=== PATIENT | male | born 1960 | race Caucasian/White ===

== ENCOUNTER 2025-04-13 17:30 | Emergency (ER) | payer MEDICARE ==
[~2025-04-13] VITALS: Ht 177.8 cm; Wt 98.0 kg
[2025-04-13 17:35] VITALS: TEMP 96.8
--- NOTE | 2025-04-13 17:42 | ERN ---
ED Note History of Present Illness Stated Complaint: ABNORMAL EKG Chief Complaint: Rapid Heart Rate Time Seen by MD: 17:34 Time Seen by Midlevel: 17:34 Dictation: Mr. Mathew is a 65 year old gentleman with history of hypertension, aortic valve replacement, chronic anticoagulation on Eliquis, GERD, hyperlipidemia, and asthma who presented to the emergency department this evening for evaluation of rapid heart rate. Patient states that at around noon he became anxious with some shortness of breath. He checked his heart rate and ranged between 112-120 which is abnormal for him. He states that he generally walks 2-2-1/2 miles daily but did not do so today. He had routine appointment at his PCP's office this afternoon. They performed a 12 lead EKG which revealed a sinus tachycardia with rate 115. They recommended he come to the closest emergency department for a IV beta-dot. His marketing planning manager is in [place]. He states he took dose Ativan 1mg at 1700. He denies fever, chills, cough, chest pain,edema, abdominal pain, nausea, vomiting, hematemesis, constipation, diarrhea, melena, hematochezia, dysuria, headache, dizziness, or focal weakness/paresthesia Allergies: Coded Allergies: metoprolol (Unverified Allergy, Unknown, 04/13/25) prochlorperazine (Unverified Allergy, Unknown, 04/13/25) Emergency Care DIGITAL ANALYST: None Past Medical History Past Medical History: Anxiety, Asthma, Cancer (skin), GERD, Heart Disease, H ypertension, Other (chronic anticoagulation on Eliquis) Surgical History: Other (aortic valve replacement x 2 , removal cancer) PSYCH History: anxiety Social History: Negative, Lives with family RN Note Reviewed/Agreed w/PFSH: Yes Review of System Dictation REVIEW OF SYSTEMS: CONSTITUTIONAL: Patient denies fevers, chills, sweats and weight changes. EYES: Patient denies any visual symptoms. EARS, NOSE, AND THROAT: No difficulties with hearing. No symptoms of rhinitis or sore throat. CARDIOVASCULAR: Patient denies chest pains, orthopnea and paroxysmal nocturnal dyspnea. Reports rapid heart rate. RESPIRATORY: No dyspnea on exertion, no wheezing or cough. GI: No nausea, vomiting, diarrhea, constipation, abdominal pain, hematochezia or melena. : No urinary hesitancy or dribbling. No nocturia or urinary frequency. No abnormal urethral discharge. MUSCULOSKELETAL: No myalgias or arthralgias. NEUROLOGIC: No chronic headaches, no seizures. Patient denies numbness, tingling or weakness. PSYCHIATRIC: Patient denies problems with mood disturbance. Reports increased stress and anxiety. Takes PRN Ativan 1-2 times daily. ENDOCRINE: No excessive urination or excessive thirst. DERMATOLOGIC: Patient denies any rashes or skin changes. Initial Vital Sign VS Vital Signs Date Time Temp Pulse Resp B/P (MAP) Pulse Ox O2 Delivery O2 Flow Rate FiO2 04/13/25 17:35 96.8 126 20 168/118 98 Room Air 0 Physical Exam Dictation Vital signs: Reviewed. Afebrile Constitutional: No acute distress. Non-toxic appearing. Calm/pleasant Head/Face: Normocephalic, atraumatic. Eyes: Periorbital areas with no swelling, redness, or edema. Lids and lashes are normal. Conjunctival injection is absent. Sclera anicteric. Pupils equal, round, reactive to light. ENT: Pinnas intact and no signs of trauma or erythema. Ear canals clear and no discharge. TMs no erythema. No nasal discharge or bleeding noted. Oropharynx with no exudate, redness, swelling, masses, exudates, or evidence of obstruction. Uvula midline. Mucous membranes moist. Neck: Trachea midline, no masses palpated, and no cervical lymphadenopathy. No swelling. Supple, full range of motion. Chest/Axilla: No tenderness, no crepitus, no paradoxical movement, no retractions. Twelve lead EKG reflects a sinus rhythm rate 71; no ST elevation Cardiovascular: Regular rate, regular rhythm, no murmur, no gallops. Symmetric pulses. No peripheral edema. Hypertensive. Chest pain 0/10 Respiratory: Respirations even and unlabored. Lung sounds clear; no wheezes, rales or rhonchi. Room air SpO2 100% Gastrointestinal: Inspection is normal. No distention is appreciated. Bowel sounds are normal. No mass or organomegaly . There is no tenderness. No rebound. No rigidity. No voluntary or involuntary guarding. No White's sign. Neurological: Normal speech, gross motor function intact, gross sensory function intact. No focal weakness/Paresthesia. Musculoskeletal/Extremities: All extremities have full range of motion, no pain or tenderness on palpation. Symmetric pulses. Integumentary: Intact. Skin is normal color, warm and dry. Cap refill less than 2 seconds. Results (Laboratory/Radiology) Laboratory/Radiology Laboratory Tests Test 04/13/25 17:58 White Blood Count 6.5 K/uL (4.8-10.8) Red Blood Count 4.63 MIL/uL (4.50-6.20) Hemoglobin 13.5 g/dL (14.0-18.0) L Hematocrit 40.0 % (42-54) L Mean Corpuscular Volume 86.4 fL (79-99) Mean Corpuscular Hemoglobin 29.2 pg (27.0-33.0) Mean Corpuscular Hemoglobin Concent 33.8 g/dL (32.0-36.0) Red Cell Distribution Width 14.2 % (11.0-15.5) Platelet Count 143 K/uL (130-400) Mean Platelet Volume 12.0 fL (7.5-10.5) H Immature Granulocyte % (Auto) 0.5 % (0-1) Neutrophils (%) (Auto) 71.2 % (40.0-77.0) Lymphocytes (%) (Auto) 19.5 % (21.0-51.0) L Monocytes (%) (Auto) 6.8 % (3.0-13.0) Eosinophils (%) (Auto) 1.4 % (0.0-8.0) Basophils (%) (Auto) 0.6 % (0.0-5.0) Neutrophils # (Auto) 4.6 K/uL (1.8-7.7) Lymphocytes # (Auto) 1.3 K/uL (1.0-4.8) Monocytes # (Auto) 0.4 K/uL (0.1-1.0) Eosinophils # (Auto) 0.09 K/uL (0.00-0.70) Basophils # (Auto) 0.04 K/uL (0.00-0.20) Absolute Immature Granulocyte (auto 0.03 K/uL (0-1) Nucleated Red Blood Cells 0.0 % (0.0-0.19) Sodium Level 143 mmol/L (136-145) Potassium Level 3.9 mmol/L (3.5-5.1) Chloride Level 103 mmol/L (101-111) Carbon Dioxide Level 28 mmol/L (21-32) Blood Urea Nitrogen 18 mg/dL (7-18) Creatinine 1.4 mg/dL (0.5-1.3) H Glomerular Filtration Rate Calc 55 mL/min (>90) Random Glucose 123 mg/dL (70-105) H Total Calcium 9.1 mg/dL (8.5-10.1) Magnesium Level 1.90 mg/dL (1.80-2.40) Total Bilirubin 0.3 mg/dL (0.2-1.0) Direct Bilirubin 0.1 mg/dL (0.0-0.3) Aspartate Amino Transf (AST/SGOT) 13 U/L (10-37) Alanine Aminotransferase (ALT/SGPT) 21 U/L (12-78) Alkaline Phosphatase 90 U/L (50-136) B-Type Natriuretic Peptide 112 pg/mL (0-100) H Total Protein 7.7 g/dL (6.0-8.3) Albumin 4.2 g/dL (3.5-5.0) Labs Reviewed?: Yes EKG Comment: EKG Interpretation: Time Reviewed: Normal sinus rhythm Ventricular rate: 71 bpm NE Interval: 286 ms QRS duration: [address] segment elevation or depression. Clinical impression: Sinus rhythm EKG Reviewed and interpreted by Dr. Campos Fallon X-RAY Comment: PATIENT: KRISTI MATHEW MR#: [id number] : 1960 SEX: M AGE: 65 LOCATION: [facility] ORDER 42 STATUS: REG REPORT#: [id number] SERVICE 41 REASON: tachycardia, SOB ORDERING PHYSICIAN: JAMEL MORATAYA NP PROCEDURE: CXR1VW - CHEST 1VW EXAM: CR Chest, 1 View. CLINICAL HISTORY: tachycardia, SOB COMPARISON: Radiograph dated September 03, 2004 FINDINGS: Pacemaker leads overlie the right atrium and right ventricle. Heart size and pulmonary vessels are within normal limits. Lungs are clear. No pleural effusion or pneumothorax. IMPRESSION: 1. No acute cardiopulmonary findings. /[place] DICTATED BY: PHILIPP CARRIZALES Jr., MD DATE: 04/13/251933 ELECTRONICALLY SIGNED BY: PHILIPP CARRIZALES Jr., MD DATE: 04/13/251933 ED Course ED Course Orders Procedure Category Date Status Time Cbc With Differential LAB 04/13/25 Complete 17:42 Basic Metabolic Panel LAB 04/13/25 Complete 17:42 Magnesium LAB 04/13/25 Complete 17:42 Hepatic Function Panel LAB 04/13/25 Complete 17:42 B-Type Natriuretic LAB 04/13/25 Complete Peptide 17:42 12 Lead Ekg Tracing- EKG 04/13/25 Logged Technical 17:42 Chest 1vw RAD 04/13/25 Resulted 17:42 Saline Lock Iv CPOE 04/13/25 Transmitted 17:42 Vital Signs Date Time Temp Pulse Resp B/P (MAP) Pulse Ox O2 Delivery O2 Flow Rate FiO2 04/13/25 17:35 96.8 126 20 168/118 98 Room Air 0 Uneventful ED course. Upon arrival to the emergency department initial heart rate 126 and blood pressure 168/118. Patient states he had taken a Ativan 1 mg at 5:00 p.m. prior to arrival. Twelve lead EKG reflects a sinus rhythm with rate 71; no ST elevation or depression. CXR unremarkable with clear lung tamayo. Laboratory findings noted H/H 13.5/40, cr 1.4, glucose 123, and BNP 112. Troponin negative. He is now normotensive with HR 70-80; sinus rhythm. He denies chest pain or shortness of breath. Medical Decision Making MDM MDM: Differential diagnosis: ACS, electrolyte derangement, dehydration Rationale: Tests considered and ordered secondary to shared decision making include: Previous outside records reviewed: Old ER visits. Risk of complication and/or morbidity or mortality of patient management: None Medications-Per medication reconciliation Need for hospitalization: Patient does not meet criteria for hospitalization. Need for emergency major/minor surgery: No There are no social concerns with this patient. Prescription drug management: Continue home medications Prescriptions will include symptomatic care Patient's prior external medical records from other ER visits were reviewed by me as indicated. Prior testing and results from previous visits were reviewed. Prior tests were taken into account with medical decision making and resource utilization, independent historian/historians were used to obtain complete medical history. I independently interpreted the test that were performed, results were reviewed by me and considered findings on radiology if ordered. Medical management and examination interpretation discussions were had by me with other qualified healthcare professionals as indicated for the patient's care. DX & DISP Disposition: Discharge Departure Impression: Primary Impression: Tachycardia Additional Impressions: Accelerated essential hypertension, Anxiety Condition: Stable Additional Instructions: Rest at home until cleared for walking by your marketing planning manager. Drink water versus tea. Keep a log of symptoms and medication use (Ativan). Continue current medications and follow up with your marketing planning manager in [place] this week. Return to the ED if you are experiencing sustained tachycardia, palpitations, shortness of breath, chest pain, or any concerns. Referrals: HENOK GERARDO MD (PCP) Time of Disposition: 19:19 JAMEL MORATAYA NP Apr 13, 2025 17:42
[2025-04-13 18:08] LABS: IMMATURE GRANULOCYTE ABSOLUTE 0.03 K/uL (0-1); NUCLEATED RED BLOOD CELLS 0.0 % (0.0-0.19); PLATELET COUNT (AUTO) 143 K/uL (130-400); RED BLOOD CELL COUNT(AUTO) 4.63 MIL/uL (4.50-6.20); RED CELL DISTRIBUTION WIDTH 14.2 % (11.0-15.5); WHITE BLOOD COUNT (AUTO) 6.5 K/uL (4.8-10.8)
[2025-04-13 18:16] LABS: CREATININE 1.4 mg/dL (0.5-1.3); GLOMERULAR FILTR. RATE CALC 55.0 mL/min (>90); GLUCOSE,RANDOM 123.0 mg/dL (70-105); SODIUM SERUM 143.0 mmol/L (136-145); UREA NITROGEN, BLOOD 18.0 mg/dL (7-18)
[2025-04-13 18:25] LABS: ASPARTATE AMINOTRANSFERASE 13.0 U/L (10-37); TOTAL PROTEIN, SERUM 7.7 g/dL (6.0-8.3)
--- NOTE | 2025-04-13 18:35 | HMCIMG ---
EXAM: CR Chest, 1 View. CLINICAL HISTORY: tachycardia, SOB COMPARISON: Radiograph dated September 03, 2004 FINDINGS: Pacemaker leads overlie the right atrium and right ventricle. Heart size and pulmonary vessels are within normal limits. Lungs are clear. No pleural effusion or pneumothorax. IMPRESSION: 1. No acute cardiopulmonary findings. /[place]
[2025-04-13 19:18] VITALS: BP 160/76; PULSE 74; RESP 16; O2SAT 96
--- NOTE | 2025-04-14 06:34 | EKG ---
[facility] Test Date: 2025-04-13 Test Time: 17:51:35 Pat Name: KRISTI LANZA Department: EDH Room: Gender: M Coater Operator: [facility] : 1960 Requested By: JAMEL MORATAYA Order Number: [id number] Reading MD: Ioana Nuñez Measurements Intervals [place] Rate: 71 P: 21 UT: 286 QRS: 39 QRSD: 105 T: -75 QT: 384 QTc: 418 Interpretive Statements Sinus rhythm Prolonged UT interval Consider anteroseptal infarct No previous ECG available for comparison Electronically Signed On 04-15-2025 14:12:51 CDT by Ioana Nuñez Please click the below link to view image of tracing.
== END 2025-04-13 19:37 | disposition home or self-care (01) ==
LOC: EDH 17:30
DX: R00.0 Tachycardia, unspecified (principal); I10 Essential (primary) hypertension; F41.9 Anxiety disorder, unspecified; J45.909 Unspecified asthma, uncomplicated; Z79.01 Long term (current) use of anticoagulants; Z85.828 Personal history of other malignant neoplasm of skin; Z95.2 Presence of prosthetic heart valve
CPT/HCPCS: 36415; 71045; 80048; 80076; 83735; 83880; 85025; 93005; 99285